=== PATIENT | female | born 1960 | race Caucasian/White ===

== ENCOUNTER 2023-06-05 14:42 | Outpatient (CLI) | payer BC, SELFPAY ==
[2023-06-05 15:27] LABS: Alanine Aminotransferase 17 U/L (6-35); Albumin Level 4.2 g/dL (3.5-5.1); Alkaline Phosphatase 161 U/L (38-126); Anion Gap 9 mmol/L (8-16); Aspartate Amino Transferase 26 U/L (14-36); Bilirubin,Total 0.6 mg/dL (0.2-1.3); Blood Urea Nitrogen 7 mg/dL (7-17); Calcium 9.6 mg/dL (8.4-10.2); Carbon Dioxide 24 mmol/L (22-30); Chloride 104 mmol/L (98-107); Estimated Glomerular Filt Rate > 60; Glucose 90 mg/dL (65-110); Potassium 4.4 mmol/L (3.4-5.0); Sodium 137 mmol/L (137-145)
[2023-06-05 15:53] LABS: Thyroid Stimulating Hormone < 0.015 uIU/mL (0.465-4.680); Total Triiodothyronine (T3) 5.53 NG/ML (0.97-1.69)
[2023-06-05 16:09] LABS: Free T4 Free Thyroxine 4.62 ng/mL (0.78-2.19)
[2023-06-13 09:58] LABS: Thyroid Peroxidase Antibodies 7756
[2023-06-13 10:15] LABS: Thyroid Stimulating Immunoglob 633
[2023-06-15 08:17] LABS: Thyrotropin Receptor Antibody >40.00
== END 2023-06-05 14:43 | disposition home or self-care (01) ==
PROVIDERS: PCP Family Medicine; Visit Provider Internal Medicine
DX: E05.90 Thyrotoxicosis, unspecified without thyrotoxic crisis or storm (principal)
CPT/HCPCS: 36415; 80053; 83519; 84439; 84443; 84445; 84480; 86376

== ENCOUNTER 2023-08-30 12:04 | Outpatient (CLI) | payer BC, SELFPAY ==
[2023-08-30 14:19] LABS: Total Triiodothyronine (T3) 2.45 NG/ML (0.97-1.69)
== END 2023-08-30 12:05 | disposition home or self-care (01) ==
LOC: ANHWCLAB 12:05
PROVIDERS: PCP Family Medicine; Visit Provider Internal Medicine
DX: H57.89 Other specified disorders of eye and adnexa (principal); E07.9 Disorder of thyroid, unspecified; E55.9 Vitamin D deficiency, unspecified; F17.200 Nicotine dependence, unspecified, uncomplicated; E05.90 Thyrotoxicosis, unspecified without thyrotoxic crisis or storm
CPT/HCPCS: 36415; 84439; 84480

== ENCOUNTER 2023-09-18 16:07 | Outpatient (CLI) | payer BC, SELFPAY ==
[2023-09-18 16:44] LABS: Alanine Aminotransferase 12 U/L (6-35); Albumin Level 3.9 g/dL (3.5-5.1); Alkaline Phosphatase 179 U/L (38-126); Anion Gap 5 mmol/L (8-16); Aspartate Amino Transferase 22 U/L (14-36); Bilirubin,Total 0.4 mg/dL (0.2-1.3); Blood Urea Nitrogen 7 mg/dL (7-17); Calcium 9.5 mg/dL (8.4-10.2); Carbon Dioxide 29 mmol/L (22-30); Chloride 102 mmol/L (98-107); Estimated Glomerular Filt Rate > 60; Glucose 94 mg/dL (65-110); Potassium 4.4 mmol/L (3.4-5.0); Sodium 136 mmol/L (137-145)
[2023-09-18 17:10] LABS: Erythrocyte Sedimentation Rate 42 mm/hr (0-20)
[2023-09-18 17:13] LABS: Thyroid Stimulating Hormone < 0.015 uIU/mL (0.465-4.680); Total Triiodothyronine (T3) 1.97 NG/ML (0.97-1.69)
[2023-09-18 17:20] LABS: Free T4 Free Thyroxine 0.47 ng/mL (0.78-2.19)
== END 2023-09-18 16:08 | disposition home or self-care (01) ==
LOC: ANHLAB 16:09
PROVIDERS: PCP Family Medicine; Visit Provider Internal Medicine
DX: E05.90 Thyrotoxicosis, unspecified without thyrotoxic crisis or storm (principal); E07.9 Disorder of thyroid, unspecified; E55.9 Vitamin D deficiency, unspecified; F17.200 Nicotine dependence, unspecified, uncomplicated; H57.89 Other specified disorders of eye and adnexa
CPT/HCPCS: 36415; 80053; 84439; 84443; 84480; 85652

== ENCOUNTER 2023-10-12 13:19 | Outpatient (CLI) | payer BC, SELFPAY ==
--- NOTE | ~2023-10-12 | US_ITS ---
EXAMINATION: US thyroid DATE: 10/12/2023 13:19 INDICATION: Thyrotoxicosis, unspecified without thyrotoxic crisis. TECHNIQUE: Multiple ultrasound images of the thyroid were obtained. COMPARISON: None. FINDINGS: The right thyroid lobe measures 4.1 x 2.5 x 1.6 cm. The left thyroid lobe measures 4.6 x 2.4 x 2.0 c m. The thyroid is diffusely hypoechoic and heterogeneous with increased vascularity. No discrete nod ule. IMPRESSION: 1. Heterogeneous, hypervascular thyroid, consistent with Graves' disease versus chronic lymphocytic ( Doc) thyroiditis. Reviewed, dictated and finalized at location A. IMPRESSION: 1. Heterogeneous, hypervascular thyroid, consistent with Graves' disease versus chronic lymphocytic (Doc) thyroiditis.
[2023-10-12 14:45] LABS: Total Triiodothyronine (T3) 2.69 NG/ML (0.97-1.69)
[2023-10-12 14:53] LABS: Free T4 Free Thyroxine 4.33 ng/mL (0.78-2.19)
== END 2023-10-12 13:20 | disposition home or self-care (01) ==
PROVIDERS: PCP Family Medicine; Visit Provider Internal Medicine
DX: E05.90 Thyrotoxicosis, unspecified without thyrotoxic crisis or storm (principal); F17.200 Nicotine dependence, unspecified, uncomplicated; H57.89 Other specified disorders of eye and adnexa; E07.9 Disorder of thyroid, unspecified; E55.9 Vitamin D deficiency, unspecified
CPT/HCPCS: 36415; 76536; 84439; 84480

== ENCOUNTER 2023-11-20 10:41 | Outpatient (CLI) | payer BC, SELFPAY ==
[2023-11-20 13:04] LABS: Alanine Aminotransferase 13 U/L (6-35); Albumin Level 3.9 g/dL (3.5-5.1); Alkaline Phosphatase 147 U/L (38-126); Anion Gap 7 mmol/L (4-12); Aspartate Amino Transferase 33 U/L (14-36); Bilirubin,Total 0.6 mg/dL (0.2-1.3); Blood Urea Nitrogen 10 mg/dL (7-17); Calcium 8.6 mg/dL (8.4-10.2); Carbon Dioxide 26 mmol/L (22-30); Chloride 104 mmol/L (98-107); Estimated Glomerular Filt Rate > 60; Glucose 99 mg/dL (65-110); Sodium 137 mmol/L (137-145)
[2023-11-20 13:19] LABS: Free T4 Free Thyroxine 1.99 ng/mL (0.78-2.19)
[2023-11-20 13:33] LABS: Thyroid Stimulating Hormone < 0.015 uIU/mL (0.465-4.680); Total Triiodothyronine (T3) 3.04 NG/ML (0.97-1.69)
[2023-11-20 13:41] LABS: Erythrocyte Sedimentation Rate 79 mm/hr (0-20)
[2023-11-22 06:59] LABS: Thyroid Peroxidase Antibodies >900 IU/mL (<9)
[2023-11-29 01:38] LABS: Thyroid Stimulating Immunoglob 357 % baseline (<140)
== END 2023-11-20 10:42 | disposition home or self-care (01) ==
LOC: ANHWCLAB 10:44
PROVIDERS: PCP Family Medicine; Visit Provider Internal Medicine
DX: E05.90 Thyrotoxicosis, unspecified without thyrotoxic crisis or storm (principal); E07.9 Disorder of thyroid, unspecified; H57.89 Other specified disorders of eye and adnexa
CPT/HCPCS: 36415; 80053; 84439; 84443; 84445; 84480; 85652; 86376

== ENCOUNTER 2023-12-12 11:29 | Outpatient (CLI) | payer BC, SELFPAY ==
[2023-12-12 17:42] LABS: Total Triiodothyronine (T3) 3.03 NG/ML (0.97-1.69)
[2023-12-12 18:01] LABS: Free T4 Free Thyroxine 1.56 ng/mL (0.78-2.19)
== END 2023-12-12 11:30 | disposition home or self-care (01) ==
LOC: ANHWCLAB 11:30
PROVIDERS: PCP Family Medicine; Visit Provider Internal Medicine
DX: E05.90 Thyrotoxicosis, unspecified without thyrotoxic crisis or storm (principal); E07.9 Disorder of thyroid, unspecified; E55.9 Vitamin D deficiency, unspecified; H57.89 Other specified disorders of eye and adnexa
CPT/HCPCS: 36415; 84439; 84480

== ENCOUNTER 2024-01-01 13:57 | Outpatient (CLI) | payer BC, SELFPAY ==
[2024-01-01 14:59] LABS: Total Triiodothyronine (T3) 3.37 NG/ML (0.97-1.69)
[2024-01-01 15:03] LABS: Free T4 Free Thyroxine 2.07 ng/mL (0.78-2.19)
== END 2024-01-01 13:58 | disposition home or self-care (01) ==
LOC: ANHLAB 13:58
PROVIDERS: PCP Family Medicine; Visit Provider Internal Medicine
DX: E05.90 Thyrotoxicosis, unspecified without thyrotoxic crisis or storm (principal); E07.9 Disorder of thyroid, unspecified; E55.9 Vitamin D deficiency, unspecified; F17.200 Nicotine dependence, unspecified, uncomplicated; H57.89 Other specified disorders of eye and adnexa
CPT/HCPCS: 36415; 84439; 84480

== ENCOUNTER 2024-09-04 15:56 | Outpatient (CLI) | payer OTHER, SELFPAY ==
[2024-09-04 16:39] LABS: Hemoglobin 11.2 g/dL (12.0-15.0); Mean Corpuscular HGB Conc 32.9 g/dl (32-36); Mean Corpuscular Hemoglobin 32.7 pg (26-34); Mean Corpuscular Volume 99.1 fl (80-100); Mean Platelet Volume 8.6 fl (7.4-10.4); Platelet Count Result 225 k/mm3 (150-375); Red Blood Count 3.43 M/mm3 (4.2-5.4); Red Cell Distribution Width 13.3 % (11.5-14.5); White Blood Count 5.2 K/mm3 (4.5-10.0)
--- OUTSIDE RECORDS SUMMARY | 2024-09-04 16:53 | XMS_ITS | Clinical Summary ---
Author Organization [facility] Address [address] [place] [address] Care Team Providers Care Tractor Trailer Mechanic Name Role Phone Vinita Bhaena MD Primary Care Provider [phone] Source Comments [facility],non-owned Affiliates and Associated Physician Practices is amultiple site organization consisting of ambulatory clinics and hospital sitesin [place], [place], [place] and [place]. This disclosure is being madepursuant to the Care Everywhere program and may not contain all information available regarding this patient. Last updated 18.[facility] Allergies No known active allergies Medications * Be aware that medications may not be up to date on this document. Alwaysverify current medications with the patient. Medication Sig Dispensed Refills Start Date End Date Status atenolol (Tenormin) 50 MG tablet Take 1 (one) tablet by mouth once daily 12/03/2023 Active calcium carbonate (Tums) 500 MG chew tablet Take 5 tabs three times daily x7 days, then two times daily x7 days, then once daily x7 days, then stop. 210 tablet 01/30/2024 Active oxyCODONE, immediate release, (Roxicodone) 5 MG tabletIndications :Thyrotoxicosis, unspecified without thyrotoxic crisis or storm TAKE ONE TABLET BY MOUTH EVERY 6 HOURS NEEDED FOR PAIN 12 tablet 01/29/2024 Active levothyroxine (Synthroid) 100 MCG tablet TAKE ONE TABLET BY MOUTH ONCE DAILY 90 tablet 4 01/29/2024 01/28/2025 Active ibuprofen (Motrin) 600 MG tablet TAKE ONE TABLET BY MOUTH EVERY 6 HOURS NEEDED FOR PAIN 30 tablet 01/29/2024 01/28/2025 Active acetaminophen (Tylenol) 500 MG tablet TAKE 1 TABLET BY MOUTH EVERY 4 HOURS NEEDED FOR FEVER OR PAIN. MAXIMUM ALLOWABLE ACETAMINOPHEN AMOUNT: 4 GRAMS (4,000MG) PER 24 HOURS. 30 tablet 01/29/2024 01/28/2025 Active calcitriol (Rocaltrol) 0.25 MCG capsule TAKE ONE CAPSULE BY MOUTH 2 TIMES A DAY FOR 28 DAYS 56 capsule 01/30/2024 01/29/2025 Active Active Problems Problem Noted Date Diagnosed Date Hyperthyroidism 01/23/2024 Polyneuropathy 02/18/2016 Other ocean transportation intermediary (current) drug therapy 5 Acne vulgaris 11/13/2014 Hidradenitis suppurativa 11/10/2014 Social History Tobacco Use Types Packs/Day Years Used Date Smoking Tobacco: Former Cigarettes Q uit: 08/2023 Smokeless Tobacco: Never Alcohol Use Standard Drinks/Week Comments Yes 0 (1 standard drink = 0.6 oz pur e alcohol) Daily-beer 3-4 AUDIT-C Answer Date Recorded Q1: How often do you have a drink containing alc ohol? Monthly or less 01/28/2024 Q2: How many drinks containi ng alcohol do you have on a typical day when you are drinking? 3 or 4 01/28/2024 Q3: How often do you have si x or more drinks on one occasion? Monthly 01/28/2024 Sex and Gender Information Value Date Recorded Sex Assigned at Not on file Gender Identity Not on file Sexual Orientation Not on file Last Filed Vital Signs Vital Sign Reading Time Taken Comments Blood Pressure 142/61 01/30/2024 8:06 AM CDT Pulse 47 01/30/2024 8:06 AM CDT Temperature 36.9 C (98.5 F) 01/30/2024 3:57 AM CDT Respiratory Rate 16 01/30/2024 8:06 AM CDT Oxygen Saturation 97% 01/30/2024 8:06 AM CDT Inhaled Oxygen Concentration - - Weight 65.9 kg (145 lb 3.2 oz) 01/28/2024 5:48 A M CDT Height 149.9 cm (4' 11 ) 01/28/2024 5:48 AM CDT Body Mass Index 29.33 01/28/2024 5:48 AM CDT Plan of Treatment Health Maintenance Due Date Last Done Comments COLON MONITORING 1960 COLONOSCOPY - COLON CA SCREENING 1960 CT COLONOGRAPHY - COLON CA SCREENING 1960 FIT - COLON CA SCREENING 1960 FLEX SIG - COLON CA SCREENING 1960 PAP SMEAR 1960 HIV SCREENING 1975 HEPATITIS C SCREENING 08/13/1978 DTAP/TDAP/TD VACCINES (1 - Tdap) 1979 PNEUMOCOCCAL VACCINE 50+ (1 of 1 - PCV) 2010 ZOSTER VACCINE (1 of 2) 2010 LIPID TESTING 11/13/2019 11/12/2014 COVID-19 VACCINE (1 - 2023-2 5 season) 2024 INFLUENZA VACCINE (#1) 2024 DEPRESSION SCREENING 07/02/2024 MAMMOGRAM 02/28/2025 02/28/2023, 02/28/2023 COLOGUARD (AGES 45-75) - COL ON CA SCREENING 01/06/2027 01/07/2024 Colorectal Cancer Screening 01/06/2027 SCREENING FOR DIABETES 01/22/2027 , 11/16/2015 Respiratory Syncytial Virus (RSV) Vaccine Pt: or over 60 yrs (1 - 1-dose 75+ series) 2035 HEPATITIS B VACCINE Aged Out No longe r eligible based on patient's age to complete this topic HIB VACCINE Aged Out No longer eligi ble based on patient's age to complete this topic HPV VACCINE Aged Out No longer eligi ble based on patient's age to complete this topic MENINGOCOCCAL (Group B) VACCINE Aged Out No longer eligible b ased on patient's age to complete this topic MENINGOCOCCAL VACCINE Aged Out No natan rolf eligible based on patient's age to complete this topic Procedures Procedure Name Priority Date/Time Associated Diagnosis Comments BASIC METABOLIC PANEL (CALCIUM TOTAL) Routine 01/23/2024 2:53 PM CDT Hyperthyroidism LIPID PROFILE Routine 11/12/2014 10:52 AM CDT from Last 3 Months or Most Recently Relevant to Health Maintenance Results * (ABNORMAL) BASIC METABOLIC PANEL (CALCIUM TOTAL) (01/23/2024 2:53 PM CDT) BUN 6(L) 7 - 26 mg/dL 01/23/2024 4:[address] [facility] Creatinine 0.70 0.56 - 0.96 mg/dL 01/23/2024 4:[address] [facility] Sodium 137 136 - 145 mmol/L 01/23/2024 4:[address] [facility] Potassium 4.0 3.5 - 4.5 mmol/L 01/23/2024 4:[address] [facility] Chloride 103 98 - 107 mmol/L 01/23/2024 4:[address] [facility] CO2 28 22 - 29 mmol/L 01/23/2024 4:[address] [facility] Glucose 86 70 - 115 mg/dL 01/23/2024 4:[address] [facility] Calcium 9.1 8.4 - 10.2 mg/dL 01/23/2024 4:[address] [facility] Anion Gap 6 6 - 16 01/23/2024 4:[address] [facility] BUN/Creatinine Ratio 9 7 - 23 01/23/2024 4:[address] [facility] Osmolality Calculated 281 275 - 295 mOsm/kg 01/23/2024 4:[address] [facility] eGFR by CKD-EPI >90 >=90 mL/min/1.7 3 m2 01/23/2024 4:[address] [facility] Blood BLOOD SPECIMEN / Unknown Lab Venipuncture / Unknown 01/23/2024 2:53 PM CDT 01/23/2024 3:47 PM CDT Chucho Serrano MD LAB - CHEMISTRY [facility] Organization Address City/State/ZIP Co de Phone Number [facility] [address] [place] [address], [facility] [phone] * (ABNORMAL) LIPID PROFILE (11/12/2014 10:52 AM CDT) Cholesterol Total 263(H) 100 - 199 mg/dL [facility] (BEAKER) Triglycerides 121 0 - 149 mg/dL [facility] (BEAKER) HDL 71 >39 mg/dL [facility] (BEAKER) Comment: According to ATP-III Guidelines, HDL-C >59 mg/dL is considered a negative risk factor for CHD. VLDL Calculated 24 5 - 40 mg/dL [facility] (BEAKER) LDL Calculated 168(H) 0 - 99 mg/dL [facility] (BEAKER) Blood specimen (specimen) BLOOD SPECIMEN / Unknown 11/12/2014 10:52 AM CDT 11/12/2014 2:55 PM CDT Narrative [facility] (BEAKER) - 11/13/2014 6:17 AM CDT Performed at: [address] [place] [id number] Cosmetic Manager: Peter Sage PhD, Phone: [phone] Salvatore Stein MD LAB - CHEMISTRY [facility] from Last 3 Months or Most Recently Relevant to Health Maintenance Advance Directives * Full Code (Latest Code Status on File) Date Activated Date Inactivated Comments 01/28/2024 11:12 AM 01/30/2024 2:14 PM Care Teams Tractor Trailer Mechanic Relationship Specialty Start Date End Date Vinita Bahena MD [address] [place] [address] [address]. [place] [id number] PCP - General Family Medicine 07/19/23
--- OUTSIDE RECORDS SUMMARY | 2024-09-04 16:53 | XMS_ITS | Encounter Summary ---
Author Organization [facility] Address [facility] [place] [address] Care Team Providers Care Slubber Machine Operator Name Role Phone Unavailable Primary Care Provider Unavailabl e Reason for Referral * Sleep Lab (Routine) - Authorized Specialty Diagnoses / Procedures Referred By Contac t Referred To Contact [facility] Sleep Disorders Diagnoses Sleep apnea, unspecified Procedures Home Sleep Study - [facility] ([id number]) Mady Plata NP [address] [place] [address] Phone: tel: fax: [facility] Sleep Lab [address] [place] [address] Phone: tel: fax: Referral ID Status Reason Start Date Expiration Date V isits Requested Visits Authorized [id number] Authorized 08/20/2024 08/20/2025 1 1 NTIFIC PHOTOGRAPHER Encounter Details Date Type Department Care Team (Late st Contact Info) Description 08/20/2024 Transcribe Orders [facility] Sleep Lab [address] [place], [place] [id number] Mady Plata NP [address] [place] [address] Social History Tobacco Use Types Packs/Day Years Used Date Smoking Tobacco: Smoker, Current Status Unknown Comments Unknown Sex and Gender Information Value Date Recorded Sex Assigned at Not on file Legal Sex Female 10:10 PM CDT Gender Identity Not on file Sexual Orientation Not on file documented as of this encounter Plan of Treatment Scheduled Orders Name Type Priority Associated Diagnoses Orde r Schedule Home Sleep Study - [facility] ([id number]) Sleep Center Routine Sleep apnea, unspecified Expected: 08/20/2024, Expires: 08/20/2025 documented as of this encounter Visit Diagnoses Diagnosis Sleep apnea, unspecified- Primary documented in this encounter
--- OUTSIDE RECORDS SUMMARY | 2024-09-04 16:53 | XMS_ITS | Clinical Summary ---
Author Organization [facility] Address [address] [place] [address] Care Team Providers Care Soldering Technician Name Role Phone Vinita Bahena MD Primary Care Provider + Chucho Serrano MD Unavailable [phone] Sue Hauser MD Unavailable [phone] Allergies No known active allergies Medications atenoloL (TENORMIN) 25 mg tablet Take 1 tablet (25 mg total) by mouth daily 06/08/2023 Active ergocalciferol (VITAMIN D) 50,000 unit capsule Take 1 capsule (50,000 Units total) by mouth 05/03/2023 Active Xiidra 5 % dropperette INSTILL 1 DROP IN BOTH EYES TWICE DAILY 12 HOURS APART 04/26/2023 Active ibuprofen (ADVIL,MOTRIN) 800 mg tablet Take 1 tablet (800 mg total) by mouth every 6 (six) hours as needed for pain 60 tablet 1 06/20/2023 Active predniSONE (DELTASONE) 10 mg tablet TAKE 4 TABLETS BY MOUTH DAILY FOR 5 DAYS 09/18/2023 Active Active Problems Problem Noted Date Diagnosed Date Hyperthyroidism 06/20/2023 Surgical History Surgery Date Site/Laterality Comments TUBAL LIGATION 07/02/1984 - 07/01/1985 Bilateral Medical History Medical History Date Comments Hypertension Thyroid disease Social History Tobacco Use Types Packs/Day Years Used Date Smoking Tobacco: Every Day Cigarettes 0.3 44.2 Started: 1980 Smokeless Tobacco: Never Tobacco Cessation:Ready to Q uit: Not Asked; Counseling Given: Not Answered AUDIT-C Answer Date Recorded Q1: How often do you have a drink containing alc ohol? 2-4 times a month 06/20/2023 Average Number of Drinks Not on file 023 Frequency of Binge Drinking Not on file 06/02 Comments No Sex and Gender Information Value Date Recorded Sex Assigned at Not on file Legal Sex Female 7:12 PM IMAGING CLERK Gender Identity Not on file Sexual Orientation Not on file Obstetrics History Para Term AB IAB SAB Ectopic Multiple Livin g Live Births 3 Date Outcome GA Total Labor Labor/2nd/3rd Weight Sex Type Anes PTL Catrachita A1 A5 Name Clin Last Filed Vital Signs Vital Sign Reading Time Taken Comments Blood Pressure 147/78 06/20/2023 1:03 PM IMAGING CLERK Pulse 78 06/20/2023 1:03 PM IMAGING CLERK Temperature 36.6 C (97.8 F) 10/14/2014 2:03 AM CDT Respiratory Rate - - Oxygen Saturation 100% 06/20/2023 1:03 PM IMAGING CLERK Inhaled Oxygen Concentration - - Weight 59 kg (130 lb) 06/20/2023 1:03 PM IMAGING CLERK Height 149.9 cm (4' 11 ) 10/14/2014 2:03 AM CDT Body Mass Index 26.26 10/14/2014 2:03 AM CDT Plan of Treatment Health Maintenance Due Date Last Done Comments Cervical Cancer Screening 1960 Colon Cancer Screening-Colonoscopy 1960 Depression Screening 1960 Hepatitis C Screening 1960 Hepatitis B Screening 1978 Regular Well Visit/Exam 18-64 1978 Pneumococcal vaccine <65 (1 of 2 - PCV) 1979 Zoster Vaccine (1 of 2) 2010 Breast Cancer Screening-Mammogram 02/29/2024 023 Influenza Vaccine (#1) 2024 DTaP/Tdap/Td Vaccine (2 - Td or Tdap) 04/19/2025 Procedures Procedure Name Priority Date/Time Associated Diagnosis Comments SCREENING MAMMOGRAM BILATERAL W ANGEL Schedule Routine, Read Routine (OP Routine) 02/28/2023 8:58 AM CDT Encounter for screening mammogram for malignant neoplasm of breast from Last 3 Months or Most Recently Relevant to Health Maintenance Results * Screening Mammogram Bilateral W Angel (02/28/2023 8:58 AM CDT) Anatomical Region Laterality Modality Breast Bilateral Mammography Impressions 02/28/2023 9:19 AM CDT BI-RADS ATLAS category (overall): 1 - Negative There is no mammographic evidence of malignancy. A 1 year screening mammogram is recommended. The patient has been or will be contacted. We recommend annual screening mammography for women at average risk of breast cancer beginning at age 40, based on guidelines of the [employer] (ACR Practice Parameter for the Performance of Screening and Diagnostic Mammography) and [employer] [place]. For women with and elevated risk of breast cancer, please refer to the ACR Practice Parameter for specific screening recommendations. The patient will be entered into a reminder system with a target due date of 1 year for her next screening exam. Narrative 02/28/2023 9:19 AM CDT Screening Mammogram Bilateral W Angel: 02/28/23 The study was acquired using full field digital technology and interpreted from soft copy. 2D digital mammographic views, as well as 3D digital tomosynthesis were performed in the CC and MLO projections. CLINICAL: Encounter for screening mammogram for malignant neoplasm of breast. No relevant medical history has been documented for this patient. No known family history of breast cancer. COMPARISON: Baseline Screening Mammography. No prior mammography is available for comparison. BREAST TISSUE: The breasts have scattered areas of fibroglandular density. FINDINGS: There are benign calcifications in the left breast. No suspicious masses, suspicious calcifications, or other suspicious findings are seen within either breast. Vinita Bahena MD IMG MAMMO PROCEDURES Fin al Result from Last 3 Months or Most Recently Relevant to Health Maintenance Insurance [facility] ACCESS ANTHEM ACCESS Care Teams Soldering Technician Relationship Specialty Start Date End Date Vinita Bahena MD [address] [place] [address] PCP - General Family Medicine 02/16/23 Chucho Serrano MD [address] [place] [address] Consulting Physician Internal Medicine 06/13/23 Sue Hauser MD [address] [place] [address] Radiation Oncologist Radiation Oncology 06/13/23
--- OUTSIDE RECORDS SUMMARY | 2024-09-04 16:53 | XMS_ITS | Patient Health Summary ---
Author Organization [facility] Address [address] [place] [address] Care Team Providers Care Manager Civil Name Role Phone Vinita Bahena MD Primary Care Provider [phone] Note from [facility],non-owned Affiliates and Associated Physician Practices is amultiple site organization consisting of ambulatory clinics and hospital sitesin [place], [place] and [place]. This disclosure is being madepursuant to the Care Everywhere program and may not contain all information available regarding this patient. Last updated 18.[facility] Allergies No known active allergies Medications * Be aware that medications may not be up to date on this document. Alwaysverify current medications with the patient. * atenolol (Tenormin) 50 MG tablet(Started 12/03/2023) Take 1 (one) tablet by mouth once daily * calcium carbonate (Tums) 500 MG chew tablet(Started 01/30/2024) Take 5 tabs three times daily x7 days, then two times daily x7 days, then once daily x7 days, then stop. * oxyCODONE, immediate release, (Roxicodone) 5 MG tablet(Started 01/29/2024) TAKE ONE TABLET BY MOUTH EVERY 6 HOURS NEEDED FOR PAIN * levothyroxine (Synthroid) 100 MCG tablet(Started 01/29/2024) TAKE ONE TABLET BY MOUTH ONCE DAILY 4 refills by 01/28/2025 * ibuprofen (Motrin) 600 MG tablet(Started 01/29/2024) TAKE ONE TABLET BY MOUTH EVERY 6 HOURS NEEDED FOR PAIN * acetaminophen (Tylenol) 500 MG tablet(Started 01/29/2024) TAKE 1 TABLET BY MOUTH EVERY 4 HOURS NEEDED FOR FEVER OR PAIN. MAXIMUM ALLOWABLE ACETAMINOPHEN AMOUNT: 4 GRAMS (4,000MG) PER 24 HOURS. 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/2016 Other termite exterminator (current) drug therapy 5 Acne vulgaris 11/13/2014 [...] Mass Index 29.33 01/28/2024 5:48 AM CDT Procedures * CALCIUM BLOOD(Performed 01/30/2024) Performed for Hyperthyroidism * CALCIUM BLOOD(Performed 01/30/2024) Performed for Hyperthyroidism * CALCIUM BLOOD(Performed 01/29/2024) Performed for Hyperthyroidism * CALCIUM BLOOD(Performed 01/29/2024) Performed for Hyperthyroidism * CALCIUM BLOOD(Performed 01/29/2024) Performed for Hyperthyroidism * CALCIUM BLOOD(Performed 01/28/2024) Performed for Hyperthyroidism * PTH POST-OP OR ONLY(Performed 01/28/2024) Performed for Hyperthyroidism * CALCIUM BLOOD(Performed 01/28/2024) Performed for Hyperthyroidism * PATHOLOGY TISSUE(Performed 01/28/2024) Performed for Hyperthyroidism * ENDOTRACHEAL TUBE NOTE(Performed 01/28/2024) * MI THYROIDECTOMY(Performed 01/28/2024) Performed for Hyperthyroidism * TYPE + SCREEN PANEL(Performed 01/28/2024) Performed for Hyperthyroidism * TYPE + SCREEN PANEL(Performed 01/23/2024) Performed for Hyperthyroidism * CBC W/O DIFFERENTIAL(Performed 01/23/2024) Performed for Hyperthyroidism * BASIC METABOLIC PANEL (CALCIUM TOTAL)(Performed 01/23/2024) Performed for Hyperthyroidism * EKG 12-LEAD(Performed 01/23/2024) Performed for Hyperthyroidism * MRI BRAIN WWO CONTRAST(Performed 03/11/2016) * CREATININE BLOOD - POCT (IP) [facility](Performed 03/11/2016) * LAB MISC TEST(Performed 02/18/2016) * METHYLMALONIC ACID BLOOD(Performed 11/16/2015) * BRAULIO BLOOD SCREEN W/REFLEX TITER(Performed 11/16/2015) * SWENSON (SM) ANTIBODY CHANDLER(Performed 11/16/2015) * VITAMIN D 25-HYDROXY(Performed 11/16/2015) * T4 FREE(Performed 11/16/2015) * FOLATE(Performed 11/16/2015) * VITAMIN B12(Performed 11/16/2015) * TSH(Performed 11/16/2015) * ERYTHROCYTE SEDIMENTATION RATE(Performed 11/16/2015) * COMPREHENSIVE METABOLIC PANEL(Performed 11/16/2015) * LIPID PROFILE(Performed 11/12/2014) * HEPATIC FUNCTION PANEL(Performed 11/12/2014) * CBC W AUTO DIFFERENTIAL(Performed 11/12/2014) Results * CALCIUM BLOOD (01/30/2024 10:22 AM CDT) Only the most recent of7 resultswithin the time period is included. Calcium 8.5 8.4 - 10.2 mg/dL 01/30/2024 11:00 AM CDT [facility] Blood BLOOD SPECIMEN / Unknown Venipuncture / Unknown 01/30/2024 10:22 AM CDT 01/30/2024 10:42 AM CDT Russell Shell MD LAB - CHEMISTRY CAMILA MATHEW Performing Organization Address [facility]/ZIP Co de Phone Number [address] [address], [facility] [phone] * PTH POST-OP OR ONLY (01/28/2024 10:07 AM CDT) PTH Post-Operative 20.8 See Comment pg/mL 01/28/2024 10:51 AM CDT [facility] Comment:A decrease in cirula ting PTH of 50% or more, ten minutes post-resection, signals successful removal of the abnormally secreting parathyroid tissue. Blood BLOOD SPECIMEN / Unknown Venipuncture / Unknown 01/28/2024 10:07 AM CDT 01/28/2024 10:13 AM CDT Russell Shell MD LAB - CHEMISTRY CAMILA MATHEW Performing Organization Address [facility] Co de Phone Number [address] [address], [facility] [phone] * PATHOLOGY TISSUE (01/28/2024 8:57 AM CDT) Case Report Surgical Pathology Report Case: [id number] Authorizing Provider: Russell Shell MD Collected: 01/28/2024 08:57 AM Ordering Location: [facility] Received: 01/28/2024 09:54 AM Pathologist: Veronica Sim MD Specimen: Thyroid Total, THYROID, stitch right superior 01/29/2024 8:59 AM CDT [facility] Final Diagnosis Thyroid, total thyroidectomy (A): - Diffuse hyperplasia - Parathyroid tissue associated with left lobe 01/29/2024 8:59 AM [facility] Microscopic Description and Comment Sections show diffuse hyperplasia of follicular epithelium with nuclear variability and minimal colloid. No malignancy is present. Focal parathyroid tissue is present in A4. 01/29/2024 8:59 AM [facility] Clinical History The patient is a 63 year old female with Graves disease. 01/29/2024 8:59 AM [facility] Gross Description The requisition and specimen(s) are identified with the patient's name, Sheila Sosa. Received in formalin, specimen A , is a oriented total thyroidectomy. The specimen weighs 18.9 g and measures 5.0 x 4.5 x 2.5 cm overall. The right lobe measures 4.0 x 2.0 x 2.0 cm. The left lobe measures 5.0 x 2.0 x 1.8 cm. The isthmus measures 2.5 x 2.0 x 0.5 cm. Extending beyond the isthmus surface is an additional segment of presumed pyramidal lobe measuring 3.0 x 1.0 x 0.4 cm. The specimen is inked as follows: Black - External surface of the right lobe, Blue - External surface of the left lobe, [place] -external surface of isthmus and pyramidal lobe. The left and right lobes are serially sectioned from superior to inferior and the isthmus is sectioned from right to left. Sectioning shows one jones-white well-circumscribed nodule measuring 0.3 x 0.3 x 0.2 cm in the lower right. The remaining thyroid parenchyma is red-brown, glistening and homogenous cut surfaces. Financial Agent sections are submitted as follows: A1 nodule #1, entirely A2 additional section of right lobe A3-A4 unremarkable left lobe A5 unremarkable isthmus and pyramidal lobe MSL 01/29/2024 8:59 AM [facility] Pathologist Location at [facility] 01/29/2024 8:59 AM [facility] Disclaimer The performance characteristics of all immunohistochemical and indirect immunofluorescence stains (if any) cited in this report were determined by the Histopathology Laboratory of [facility]. Some of these tests were developed by our own laboratory and have not been cleared or approved by the US Food and Drug Administration. The FDA does not require this test to go through premarket FDA review. These tests are used for clinical purposes. They should not be regarded as investigational or for research. This laboratory is certified under the Clinical Laboratory Improvement Amendments (CLIA) as qualified to perform high complexity clinical laboratory testing. This case has been personally reviewed and interpreted by the attending (teaching) pathologist. 01/29/2024 8:59 AM CDT [facility] Embedded Images 01/29/2024 8:59 AM CDT [facility] Biopsy, Excision SPECIMEN FROM THYROID OBTAINED BY TOTAL THYROIDECTOMY / Unknown 01/28/2024 8:57 AM CDT 01/28/2024 9:54 AM CDT Comment:Pre-op diagnosis: Hyperthyroidism Russell Shell MD LAB - PATHOLOGY/CYTO LOGY ORDERABLES Performing Organization Address City/State/[facility] Phone Number [facility] [address] [phone] * ETT LINE PERFORMABLE (01/28/2024 8:06 AM CDT) Narrative Rebeka Cabrera MD - 01/28/2024 8:06 AM CDT Rebeka Cabrera MD 01/28/2024 8:06 AM Endotracheal Tube Placement: Patient Location: OR. Procedure: intubation (32370) Procedure Section: Sedation: under general anesthesia. Indications for Airway Management: anesthesia Induction: standard IV Patient Position: sniffing and supine Mask Ventilation: easy. Blade Type: Video Blade Size: 3 Laryngoscopy View: grade 1 (full cords) Intubation Adjuncts: stylet and video laryngoscope Tube: endotracheal tube Placement: oral Tube type: cuff - inflated (NIMS) Tube Size (MM): 7 Depth of Insertion (CM): 21 Measured From: teeth Cuff volume (mL): 8 Cuff Inflated With: air Number of Attempts: 1. Placement Verified By: direct visualization, chest auscultation, CO2 monitor and bilateral breath sounds Tube secured with: adhesive tape. Dentition unchanged? Yes Difficult Airway? No. Staff Section Anesthesia Provider: Rebeka Cabrera MD, Performed the procedure Provider #1: Georgette Elizondo MD. Georgette Elizondo MD GENERAL ANESTHESIA ORDERABLES * TYPE + SCREEN PANEL (01/28/2024 6:18 AM CDT) Only the most recent of2 resultswithin the time period is included. [facility] Antibody Screen NEG 7:18 AM CDT [facility] ABO Rh O POS 01/28/2024 7:18 AM CDT [facility] Blood Bank BLOOD SPECIMEN / Unknown Venipuncture / Unknown 01/28/2024 6:18 AM CDT 01/28/2024 6:24 AM CDT Chucho Serrano MD LAB - BLOOD BANK ORD ERABLES [facility] [address] [place] [address], [facility] [phone] * CBC W/O DIFFERENTIAL (01/23/2024 2:53 PM CDT) [facility] WBC 7.7 4.0 - 10.7 x10E9/L 01/23/2024 3:50 PM CDT [facility] RBC Count 4.63 3.90 - 5.20 x10E12/L 01/23/2024 3:50 PM CDT [facility] Hemoglobin 13.4 11.9 - 15.8 g/dL 01/23/2024 3:50 PM CDT [facility] Hematocrit 40.0 34.8 - 46.1 % 01/23/2024 3:50 PM CDT [facility] MCV 86.4 80.0 - 98.0 fL 01/23/2024 3:50 PM CDT [facility] MCH 28.9 26.7 - 33.6 pg 01/23/2024 3:50 PM CDT [facility] MCHC 33.5 31.7 - 36.3 g/dL 01/23/2024 3:50 PM CDT [facility] RDW-CV 13.0 11.3 - 14.8 % 01/23/2024 3:50 PM CDT [facility] Platelet Count 386 150 - 420 x10E9/L 01/23/2024 3:50 PM [facility] MPV 8.4 7.8 - 11.4 fL 01/23/2024 3:50 PM [facility] Blood BLOOD SPECIMEN / Unknown Lab Venipuncture / Unknown 01/23/2024 2:53 PM CDT 01/23/2024 3:47 PM CDT Chucho Serrano MD LAB - HEMATOLOGY ORD ERABLES [facility] [address] [place] [address], [facility] [phone] * (ABNORMAL) BASIC METABOLIC PANEL (CALCIUM TOTAL) (01/23/2024 2:53 PM CDT) BUN 6(L) 7 - 26 mg/dL 01/23/2024 4:17 PM [facility] Creatinine 0.70 0.56 - 0.96 mg/dL 01/23/2024 4:17 PM [facility] Sodium 137 136 - 145 mmol/L 01/23/2024 4:17 PM [facility] Potassium 4.0 3.5 - 4.5 mmol/L 01/23/2024 4:17 PM [facility] Chloride 103 98 - 107 mmol/L 01/23/2024 4:17 PM [facility] CO2 28 22 - 29 mmol/L 01/23/2024 4:17 PM [facility] Glucose 86 70 - 115 mg/dL 01/23/2024 4:17 PM [facility] Calcium 9.1 8.4 - 10.2 mg/dL 01/23/2024 4:17 PM [facility] Anion Gap 6 6 - 16 01/23/2024 4:17 PM [facility] BUN/Creatinine Ratio 9 7 - 23 01/23/2024 4:17 PM [facility] Osmolality Calculated 281 275 - 295 mOsm/kg 01/23/2024 4:17 PM [facility] eGFR by CKD-EPI >90 >=90 mL/min/1.7 3 m2 01/23/2024 4:17 PM [facility] Blood BLOOD SPECIMEN / Unknown Lab Venipuncture / Unknown 01/23/2024 2:53 PM CDT 01/23/2024 3:47 PM CDT Chucho Serrano MD LAB - CHEMISTRY ORDDevin MATHEW Performing Organization Address [facility] Co de Phone Number [facility] [address] [phone], [facility] [phone] * EKG 12-LEAD (01/23/2024 1:52 PM CDT) Pathologist [facility] Ventricular Rate 56 BPM [facility] M[facility] Atrial Rate 56 BPM [facility] P-R Interval 120 ms [facility] QRS Duration ms 70 ms [facility] M[facility] Q-T Interval ms 428 ms [facility] QTC Calculation (Bezet) 413 ms [facility] M[facility] Calculated P [place] -3 degrees SL MUSE Calculated R [place] 2 degrees SL MUSE Calculated T [place] 23 degrees [facility] MUSE Interpretation EKG SINUS BRADYCARDIA NONSPECIFIC ST & T WAVE CHANGES POOR R WAVE PROGRESSION NO PREVIOUS ECGS AVAILABLE Confirmed by fellow YOVANA DIAZ MD ([id number]) on 01/23/2024 5:31:18 PM Confirmed by AIDE FRAZIER MD ([id number]) on 01/24/2024 4:34:05 PM [facility] MUSE 01/23/2024 1:52 PM CDT 01/24/2024 4:34 PM CDT Chucho Serrano MD ECG ORDERABLES Performing Organization Address [facility] Co de Phone Number [facility] M[facility] * MRI BRAIN WWO CONTRAST (03/11/2016 2:10 PM CDT) Anatomical Region Laterality Modality Head Other Impressions 03/12/2016 10:45 AM CDT IMPRESSION: 1. No findings identified to explain the patient's symptoms. This report was electronically signed by ARACELIS NICOLAS M.D. on 03/12/2016 10:45 AM . Narrative 03/12/2016 10:45 AM CDT EXAMINATION: Magnetic resonance imaging (MRI) of the brain without and with contrast HISTORY: Progressive headache for last year TECHNIQUE: MRI of the brain was performed prior to and following the uneventful administration of 8 mL Gadavist intravenous gadolinium contrast according to a tumor protocol. FINDINGS: No prior study is available for comparison at the time of this dictation. No evidence of acute or chronic hemorrhage is identified. No evidence of acute cerebral infarction is seen. The ventricles are of normal size, shape, and morphology. No mass effect or midline shift is seen. Scattered cerebral hemispheric white matter FLAIR hyperintensities are a nonspecific finding. No enhancing lesions are identified. The corpus callosum and sella appear normal. The posterior fossa, brainstem, and craniocervical junction appear normal. Other than mild paranasal sinus disease, the visualized portions of the orbits, paranasal sinuses, and mastoids appear normal. Normal flow voids are demonstrated in the carotid arteries and basilar artery. The calvarium and visualized cervical spine appear normal. Procedure Note Aracelis Nicolas MD - 09/29/2017 EXAMINATION: Magnetic resonance imaging (MRI) of the brain without andwith contrast HISTORY: Progressive headache for last year TECHNIQUE: MRI of the brain was performed prior to and following theuneventful administration of 8 mL Gadavist intravenous gadolinium contrastaccording to a tumor protocol. FINDINGS: No prior study is available for comparison at the time of thisdictation. No evidence of acute or chronic hemorrhage is identified. No evidence ofacute cerebral infarction is seen. The ventricles are of normal size,shape, and morphology. No mass effect or midline shift is seen. Scatteredcerebral hemispheric white matter FLAIR hyperintensities are a nonspecific finding. No enhancing lesions areidentified. The corpus callosum and sella appear normal. The posteriorfossa, brainstem, and craniocervical junction appear normal. Other than mild paranasal sinus disease, the visualized portions of theorbits, paranasal sinuses, and mastoids appear normal. Normal flow voidsare demonstrated in the carotid arteries and basilar artery. The calvariumand visualized cervical spine appear normal. IMPRESSION IMPRESSION: 1. No findings identified to explain the patient's symptoms. This report was electronically signed by ARACELIS NICOLAS M.D. on 03/12/201610:45 AM . Tavo Pittman MD MR ORDERABLES * CREATININE BLOOD - POCT (IP) [facility] (03/11/2016) [facility] Creatinine POCT 0.79 0.3 - 1.3 mg/dL [facility] eGFR POCT 60 60 ml/min [facility] 03/11/2016 Tavo Pittman MD LAB - POINT OF CARE ORDERABLES Performing Organization Address [facility]/ZIP Co de Phone Number [facility] * LAB MISC TEST (02/18/2016 9:23 AM CDT) [facility] Reference Lab Results SEE SCANNED REPORT [facility] REF LAB NON INTERF Other (qualifier value) 02/18/2016 9:23 AM CDT 02/18/2016 10:18 AM CDT Narrative [facility] REF LAB NON INTERF - 03/15/2016 1:59 PM CDT Test Name:->SENSORY NEUROPATHY/NEURONOPATHY Reference Lab Info:->NEUROMUSCULAR CLINICAL LAB Tavo Pittman MD LAB SEND OUT Performing Organization Address [facility] Co de Phone Number [facility] REF LAB NON INTERF * SWENSON (SM) ANTIBODY CHANDLER (11/16/2015 2:26 PM CDT) [facility] Swenson Antibody 2.6 0.0 - 19.9 Units [facility] Comment: CHANDLER Antibody Numeric Result Interpretation: <20.0 Units: Negative 20.0 - 39.0 Units: Weakly Positive >39.0 Units: Positive Blood specimen (specimen) BLOOD SPECIMEN / Unknown 11/16/2015 2:26 PM CDT 11/16/2015 3:01 PM CDT Tavo Pittman MD LAB - CHEMISTRY CAMILA MATHEW Performing Organization Address [facility]/ZIP Co de Phone Number [address] [phone] * BRAULIO BLOOD SCREEN W/REFLEX TITER (11/16/2015 2:26 PM CDT) [facility] BRAULIO IFA Negative [facility] ([facility]ER) Comment: Negative <1:80 Borderline 1:80 Positive >1:80 Blood specimen (specimen) BLOOD SPECIMEN / Unknown 11/16/2015 2:26 PM CDT 11/16/2015 3:02 PM CDT Narrative [facility] ([facility]) - 11/18/2015 3:20 PM CDT Performed at: [address] [place] [id number] Transit Department Clerk: Bird Ferrer PhD, Phone: [phone] Tavo Pittman MD LAB - CHEMISTRY CAMILA MATHEW [facility] ([facility]) * METHYLMALONIC ACID BLOOD (11/16/2015 2:26 PM CDT) Pathologist [facility] Methylmalonic Acid 104 0 - 378 nmol/L [facility] ([facility]) Blood specimen (specimen) BLOOD SPECIMEN / Unknown 11/16/2015 2:26 PM CDT 11/16/2015 3:02 PM CDT Narrative [facility] ([facility]) - 11/20/2015 6:17 AM CDT Performed at: [address] [place] [id number] [address] Department Clerk: Christian Tolentino MD, Phone: [phone] Tavo Pittman MD LAB - CHEMISTRY CAMILA MATHEW Performing Organization Address City/[facility]/ZIP Co de Phone Number [facility] ([facility]) * (ABNORMAL) VITAMIN D 25-HYDROXY (11/16/2015 2:26 PM CDT) Vitamin D, 25 Hydroxy <13.0(L) >30.0 ng/mL [facility] Comment: The recommendations for 25-Hydroxy Vitamin D clinical decision points are as follows: Deficient: <20.0 ng/mL Insufficient: 20.0 - 30.0 ng/mL Sufficient: >30.0 ng/mL If the 25-Hydroxy Vitamin D results are inconsitent with clinical evidence, it is recommended that follow-up testing using a method such as LC/MS/MS be performed to confirm the result. Blood specimen (specimen) BLOOD SPECIMEN / Unknown 11/16/2015 2:26 PM CDT 11/16/2015 3:01 PM CDT Tavo Pittman MD LAB - CHEMISTRY ORDE RABLES Performing Organization Address City/[facility]/ZIP Co de Phone Number [address] [phone] * ERYTHROCYTE SEDIMENTATION RATE (11/16/2015 2:26 PM CDT) Erythrocyte Sedimentation Rate Westergren 5 0 - 20 MM/HR [facility] Blood specimen (specimen) BLOOD SPECIMEN / Unknown 11/16/2015 2:26 PM CDT 11/16/2015 3:01 PM CDT Tavo Pittman MD LAB - HEMATOLOGY ORD ERABLES Performing Organization Address [facility] Co de Phone Number [address] [phone] * COMPREHENSIVE METABOLIC PANEL (11/16/2015 2:26 PM CDT) BUN 9 7 - 26 mg/dL [facility] Creatinine 0.6 0.6 - 1.2 mg/dL [facility] Sodium 138 136 - 145 mmol/L [facility] Potassium 4.2 3.5 - 4.5 mmol/L [facility] Chloride 107 98 - 107 mmol/L [facility] CO2 25 22 - 29 mmol/L [facility] Glucose 96 70 - 115 mg/dL [facility] Calcium 9.4 8.4 - 10.2 mg/dL [facility] Protein Total 7.3 6.0 - 8.3 g/dL [facility] Albumin 3.9 3.4 - 5.0 g/dL [facility] Bilirubin Total 0.4 0.2 - 1.2 mg/dL [facility] Alkaline Phosphatase 85 40 - 150 Units/L [facility] ALT 11 0 - 55 Units/L [facility] AST 15 5 - 34 Units/L [facility] Anion Gap 10 8 - 18 [facility] BUN/Creatinine Ratio 15 7 - 23 [facility] Osmolality Calculated 270 270 - 300 mOsm/kg [facility] Albumin/Globulin Ratio 1.1 1.1 - 2.3 [facility] eGFR >60 >60 mL/min/1.7 3 m2 [facility] Blood specimen (specimen) BLOOD SPECIMEN / Unknown 11/16/2015 2:26 PM CDT 11/16/2015 3:01 PM CDT Tavo Pittman MD LAB - CHEMISTRY CAMILA MATHEW [address] [phone] * FOLATE (11/16/2015 2:26 PM CDT) Folate 11.3 7.0 - 31.4 ng/mL [facility] Blood specimen (specimen) BLOOD SPECIMEN / Unknown 11/16/2015 2:26 PM CDT 11/16/2015 3:01 PM CDT Tavo Pittman MD LAB - CHEMISTRY CAMILA MATHEW Performing Organization Address City/[facility]/ZIP Co de Phone Number [address] [phone] * VITAMIN B12 (11/16/2015 2:26 PM CDT) Vitamin B12 518 213 - 816 pg/mL [facility] Blood specimen (specimen) BLOOD SPECIMEN / Unknown 11/16/2015 2:26 PM CDT 11/16/2015 3:01 PM CDT Tavo Pittman MD LAB - CHEMISTRY CAMILA MATHEW [address] [phone] * TSH (11/16/2015 2:26 PM CDT) TSH 1.821 0.350 - 4.940 uIU/mL [facility] Blood specimen (specimen) BLOOD SPECIMEN / Unknown 11/16/2015 2:26 PM CDT 11/16/2015 3:01 PM CDT Tavo Pittman MD LAB - CHEMISTRY CAMILA MATHEW [address] [phone] * T4 FREE (11/16/2015 2:26 PM CDT) Pathologist [facility] T4 Free 1.0 0.7 - 1.5 ng/dL [facility] Blood specimen (specimen) BLOOD SPECIMEN / Unknown 11/16/2015 2:26 PM CDT 11/16/2015 3:01 PM CDT Tavo Pittman MD LAB - CHEMISTRY CAMILA MATHEW Performing Organization Address [facility]/ZIP Co de Phone Number [address] [phone] * CBC W AUTO DIFFERENTIAL (11/12/2014 10:52 AM CDT) Pathologist [facility] WBC 6.9 3.4 - 10.8 x10E3/uL [facility] ([facility]ER) RBC 4.62 3.77 - 5.28 x10E6/uL [facility] (BEAKER) Hemoglobin 14.9 11.1 - 15.9 g/dL [facility] (BEAKER) Hematocrit 43.7 34.0 - 46.6 % [facility] (BEAKER) MCV 95 79 - 97 fL [facility] (BEAKER) MCH 32.3 26.6 - 33.0 pg [facility] (BEAKER) MCHC 34.1 31.5 - 35.7 g/dL [facility] (BEAKER) RDW-CV 13.5 12.3 - 15.4 % [facility] (BEAKER) Platelet 234 150 - 379 x10E3/uL [facility] (BEAKER) Neutrophils % 57 % [facility] (BEAKER) Lymphocytes % 34 % [facility] (BEAKER) Monocytes % 6 % [facility] (BEAKER) Eosinophils % 2 % [facility] (BEAKER) Basophil % 1 % [facility] (BEAKER) Neutrophils Absolute 4.0 1.4 - 7.0 x10E3/uL [facility] (BEAKER) Lymphocyte Absolute Manual 2.4 0.7 - 3.1 x10E3/uL [facility] (BEAKER) Monocytes Absolute 0.4 0.1 - 0.9 x10E3/uL [facility] (BEAKER) Eosinophils Absolute Manual 0.1 0.0 - 0.4 x10E3/uL [facility] (BEAKER) Basophil Absolute Manual 0.0 0.0 - 0.2 x10E3/uL [facility] (BEAKER) Immature Granulocytes % 0 % [facility] (BEAKER) Immature Granulocytes absolute 0.0 0.0 - 0.1 x10E3/uL [facility] (BEAKER) Blood specimen (specimen) BLOOD SPECIMEN / Unknown 11/12/2014 10:52 AM CDT 11/12/2014 2:55 PM CDT Narrative [facility] (BEAKER) - 11/13/2014 6:17 AM CDT Performed at: [address] [place] [id number] Transit Department Clerk: Peter Sage PhD, Phone: [phone] Salvatore Stein MD LAB - HEMATOLOGY ORD ERABLES [facility] (BEAKER) * HEPATIC FUNCTION PANEL (11/12/2014 10:52 AM CDT) Protein Total 6.9 6.0 - 8.5 g/dL [facility] (BEAKER) Albumin 4.5 3.5 - 5.5 g/dL [facility] (BEAKER) Bilirubin Total 0.3 0.0 - 1.2 mg/dL [facility] (BEAKER) Bilirubin Direct 0.09 0.00 - 0.40 mg/dL [facility] (BEAKER) Alkaline Phosphatase 79 39 - 117 IU/L [facility] (BEAKER) AST 15 0 - 40 IU/L [facility] (BEAKER) ALT 12 0 - 32 IU/L [facility] (BEAKER) Blood specimen (specimen) BLOOD SPECIMEN / Unknown 11/12/2014 10:52 AM CDT 11/12/2014 2:55 PM CDT Narrative [facility] (BEAKER) - 11/13/2014 6:17 AM CDT Performed at: [address] [id number] Transit Department Clerk: Peter Sage PhD, Phone: [phone] Salvatore Stein MD LAB - CHEMISTRY CAMILA MATHEW Performing Organization Address City/[facility]/ZIP Co de Phone Number [facility] (BEAKER) * (ABNORMAL) LIPID PROFILE (11/12/2014 10:52 AM CDT) Cholesterol Total 263(H) 100 - 199 mg/dL [facility] (BEAKER) Triglycerides 121 0 - 149 mg/dL [facility] (BEAKER) HDL 71 >39 mg/dL [facility] (BEAKER) Comment: According to ATP-III Guidelines, HDL-C >59 mg/dL is considered a negative risk factor for CHD. VLDL Calculated 24 5 - 40 mg/dL [facility] (BEAKER) LDL Calculated 168(H) 0 - 99 mg/dL [facility] (BEAKER) Blood specimen (specimen) BLOOD SPECIMEN / Unknown 11/12/2014 10:52 AM CDT 11/12/2014 2:55 PM CDT Narrative [facility] (BEAKER) - 11/13/2014 6:17 AM CDT Performed at: [address] [id number] Transit Department Clerk: Peter Sage PhD, Phone: [phone] Salvatore Stein MD LAB - CHEMISTRY CAMILA MATHEW [facility] (BEAKER) Care Teams Manager Civil Relationship Specialty Start Date End Date Vinita Bahena MD [address] [place], [place] [phone] PCP - General Family Medicine 07/19/23
--- OUTSIDE RECORDS SUMMARY | 2024-09-04 16:53 | XMS_ITS | Referral Summary ---
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 Gender Identity Not on file Sexual Orientation Not on file Last Filed Vital Signs Vital Sign Reading Time Taken Comments Blood Pressure 147/78 06/20/2023 1:03 PM PERSONNEL QUALITY ASSURANCE AUDITOR Pulse 78 06/20/2023 1:03 PM PERSONNEL QUALITY ASSURANCE AUDITOR Temperature 36.6 C (97.8 F) 10/14/2014 2:03 AM CDT Respiratory Rate - - Oxygen Saturation 100% 06/20/2023 1:03 PM PERSONNEL QUALITY ASSURANCE AUDITOR Inhaled Oxygen Concentration - - Weight 59 kg (130 lb) 06/20/2023 1:03 PM PERSONNEL QUALITY ASSURANCE AUDITOR Height 149.9 cm (4' 11 ) 10/14/2014 2:03 AM CDT Body Mass Index 26.26 10/14/2014 2:03 AM CDT Plan of Treatment Not on file Procedures Procedure Name Priority Date/Time Associated Diagnosis [...] age 40, based on guidelines of the [employer] (ACR Practice Parameter for the Performance of Screening and Diagnostic Mammography) and [employer]. For women [...] Most Recently Relevant to Health Maintenance Insurance [employer] ACC[employer] ANTHEM ACCESS Care Teams Yarn Mercerizer Operator Helper Relationship Specialty Start Date End Date Vinita Bahena MD [address] [place] [address] PCP - General Family Medicine 02/16/23 Chucho Serrano MD [address] [place] [address] Consulting Physician Internal Medicine 06/13/23 Sue Hauser MD [address] [place] [address] Radiation Oncologist Radiation Oncology 06/13/23
--- OUTSIDE RECORDS SUMMARY | 2024-09-04 16:53 | XMS_ITS | Referral Summary ---
Author Organization [facility] [employer] Address [address] [place] [address] Care Team Providers Care Customer Care Team Coach Name Role Phone Vinita Bahena MD Primary Care Provider [phone] Source Comments [facility] [employer]non-owned Affiliates and Associated Physician Practices is amultiple site organization consisting of ambulatory clinics and hospital sitesin [place], [place], [place] and [place]. This disclosure is being madepursuant to the Care Everywhere program and may not contain all information available regarding this patient. Last updated 18.[facility] [employer] Allergies No known active allergies Medications * [...] Diagnosed Date Hyperthyroidism 01/23/2024 Polyneuropathy 02/18/2016 Other terminal system operator (current) drug therapy 5 Acne vulgaris 11/13/2014 [...] 01/28/2024 5:48 AM CDT Plan of Treatment Not on [...] 7 - 26 mg/dL 01/23/2024 4:17 PM [facility] Creatinine 0.70 0.56 - 0.96 mg/dL 01/23/2024 4:17 PM [facility] Sodium 137 136 - 145 mmol/L 01/23/2024 4:17 PM [facility] Potassium 4.0 3.5 - 4.5 mmol/L 01/23/2024 4:17 PM [facility] Chloride 103 98 - 107 mmol/L 01/23/2024 4:17 PM [facility] CO2 28 22 - 29 mmol/L 01/23/2024 4:17 PM [facility] Glucose 86 70 - 115 mg/dL 01/23/2024 4:17 PM [facility] Calcium 9.1 8.4 - 10.2 mg/dL 01/23/2024 4:17 PM [facility] Anion Gap 6 6 - 16 01/23/2024 4:17 PM [facility] BUN/Creatinine Ratio 9 7 - 23 01/23/2024 4:17 PM [facility] Osmolality Calculated 281 275 - 295 mOsm/kg 01/23/2024 4:17 PM [facility] eGFR by CKD-EPI >90 >=90 mL/min/1.7 3 m2 01/23/2024 4:17 PM [facility] Blood BLOOD SPECIMEN / Unknown Lab Venipuncture / Unknown 01/23/2024 2:53 PM CDT 01/23/2024 3:47 PM CDT Chucho Serrano MD LAB - CHEMISTRY CAMILA MATHEW [facility] [id number] [phone] * (ABNORMAL) LIPID PROFILE (11/12/2014 10:52 AM CDT) Pathologist [facility] Cholesterol Total 263(H) 100 - 199 mg/dL [facility] (BEAKER) Triglycerides 121 0 - 149 mg/dL [facility] (BEAKER) HDL 71 >39 mg/dL [facility] (BEAKER) Comment: According to ATP-III Guidelines, HDL-C >59 mg/dL is considered a negative risk factor for CHD. VLDL Calculated 24 5 - 40 mg/dL [facility] (BEAKER) LDL Calculated 168(H) 0 - 99 mg/dL [facility] (BEAKER) Blood specimen (specimen) BLOOD SPECIMEN / Unknown 11/12/2014 10:52 AM CDT 11/12/2014 2:55 PM CDT Narrative [facility] (BEAKER) - 11/13/2014 6:17 AM CDT Performed at: - [address] [id number] [place] Slasher: Peter Sage PhD, Phone: [phone] Salvatore Stein MD LAB - CHEMISTRY CAMILA MATHEW [facility] ([facility]) from Last 3 Months or Most Recently Relevant to Health Maintenance Advance Directives * Full Code (Latest Code Status on File) Date Activated Date Inactivated Comments 01/28/2024 11:12 AM 01/30/2024 2:14 PM Care Teams Customer Care Team Coach Relationship Specialty Start Date End Date Vinita Bahena MD [address] [place] [address] [place] [phone] PCP - General Family Medicine 07/19/23
--- OUTSIDE RECORDS SUMMARY | 2024-09-04 16:53 | XMS_ITS | Clinical Summary ---
Author Organization [facility] Address [address] [place] [address] Care Team Providers Care International Travel Consultant Name Role Phone Unavailable Primary Care Provider Unavailabl e Encounters Date Type Department Care Team Description 08/20/2024 Transcribe Orders [facility] [address] [place], [place] [phone] Mady Plata NP from Last 3 Months Social History Tobacco Use Types Packs/Day Years Used Date Smoking Tobacco: Smoker, Current Status Unknown Comments Unknown Sex and Gender Information Value Date Recorded Sex Assigned at Not on file Legal Sex Female 10:10 PM CDT Gender Identity Not on file Sexual Orientation Not on file Last Filed Vital Signs Vital Sign Reading Time Taken Comments Blood Pressure 118/90 10/26/2015 11:06 AM CDT Pulse 98 10/26/2015 11:05 AM CDT Temperature - - Respiratory Rate - - Oxygen Saturation - - Inhaled Oxygen Concentration - - Weight 84.8 kg (187 lb) 10/26/2015 11:05 AM CDT Height 147.3 cm (4' 10 ) 10/26/2015 11:05 AM CDT Body Mass Index 39.08 10/26/2015 11:05 AM CDT Plan of Treatment Health Maintenance Due Date Last Done Comments Cervical Cancer Screening Pa p Smear (Age 30 to 64) Every 3 Years 1960 Colorectal Cancer Screening Colonoscopy (10 Years) 1960 Annual Physical 1963 Hepatitis C 1978 DTaP, Tdap and Td Vaccines ( 1 - Tdap) 1979 Cervical Cancer Screening Pa p with HPV Testing (Age 30 to 64) Every 5 Years 1990 Cervical Cancer Screening with HPV 1990 Mammogram Screening 2000 Zoster Vaccines (1 of 2) 2010 COVID-19 Vaccine (2023-2 5 season) 2024 Influenza Adult (#1) 2024 RSV Immunization or 60+ Years (1 - 1-dose 75+ series) 2035 Meningococcal B Vaccine Aged Out No l onger eligible based on patient's age to complete this topic Meningococcal Vaccine Aged Out No natan rolf eligible based on patient's age to complete this topic Pneumococcal Vaccine: Pediat rics (0 to 5 Years) and At-Risk Patients (6 to 64 Years) Aged Out No longer eligible b ased on patient's age to complete this topic RSV Immunizations Under 20 Months Aged Out No longer eligible based on patient's age to complete this topic
[2024-09-04 16:54] LABS: Alanine Aminotransferase 13 U/L (6-35); Albumin Level 4.2 g/dL (3.5-5.1); Alkaline Phosphatase 95 U/L (38-126); Anion Gap 10 mmol/L (4-12); Aspartate Amino Transferase 22 U/L (14-36); Bilirubin,Total 0.4 mg/dL (0.2-1.3); Blood Urea Nitrogen 15 mg/dL (7-17); Calcium 8.7 mg/dL (8.4-10.2); Carbon Dioxide 28 mmol/L (22-30); Chloride 101 mmol/L (98-107); Estimated Glomerular Filt Rate > 60; Glucose 84 mg/dL (65-110); Magnesium 2.2 mg/dL (1.6-2.3); Phosphorus 3.8 mg/dL (2.5-4.5); Sodium 139 mmol/L (137-145)
[2024-09-04 17:07] LABS: Parathyroid Intact 69.1 pg/mL (14.5-75.2)
[2024-09-04 17:23] LABS: Free T4 Free Thyroxine 2.09 ng/dL (0.78-2.19); Vitamin D 25 Hydroxy 19.2 ng/mL
[2024-09-05 16:47] LABS: Ionized Calcium 4.8 mg/dL (4.7-5.5)
== END 2024-09-04 15:57 | disposition home or self-care (01) ==
LOC: ANHLAB 16:02
PROVIDERS: Visit Provider Internal Medicine
DX: E05.90 Thyrotoxicosis, unspecified without thyrotoxic crisis or storm (principal); E55.9 Vitamin D deficiency, unspecified; Z98.890 Other specified postprocedural states; Z90.89 Acquired absence of other organs; E89.0 Postprocedural hypothyroidism
CPT/HCPCS: 36415; 80053; 82306; 82330; 83735; 83970; 84100; 84439; 84443; 85027

== ENCOUNTER 2025-02-05 12:38 | Outpatient (CLI) | payer OTHER, SELFPAY ==
--- OUTSIDE RECORDS SUMMARY | 2025-02-05 12:45 | XMS_ITS | Clinical Summary ---
Author Organization [facility] Address [address] [place] [address] Care Team Providers Care Marble Machine Tender Name Role Phone Unavailable Primary Care Provider Unavailabl e Social History Tobacco Use Types Packs/Day Years [...] 11:05 AM CDT Height 147.3 cm (4' 10) 10/26/2015 11:05 AM CDT Body Mass Index [...] Screening with HPV 1990 Mammogram Screening 2000 Pneumococcal Vaccine: 50+ Ye ars (1 of 1 - PCV) 2010 Zoster Vaccines (1 of 2) 2010 COVID-19 Vaccine (2023-2 5 season) 2024 RSV Immunization or 60+ Years (1 [...]
[2025-02-05 13:16] LABS: Hematocrit 40.6 % (37.0-47.0); Hemoglobin 13.4 g/dL (12.0-15.0); Mean Corpuscular HGB Conc 33.0 g/dl (32-36); Mean Corpuscular Hemoglobin 30.9 pg (26-34); Mean Corpuscular Volume 93.5 fl (80-100); Platelet Count Result 269 k/mm3 (150-375); Red Blood Count 4.34 M/mm3 (4.2-5.4); White Blood Count 6.1 K/mm3 (4.5-10.0)
[2025-02-05 13:32] LABS: Alanine Aminotransferase 12 U/L (6-35); Albumin Level 4.1 g/dL (3.5-5.1); Alkaline Phosphatase 100 U/L (38-126); Anion Gap 9 mmol/L (4-12); Aspartate Amino Transferase 24 U/L (14-36); Bilirubin,Total 0.5 mg/dL (0.2-1.3); Blood Urea Nitrogen 3 mg/dL (7-17); Calcium 8.7 mg/dL (8.4-10.2); Carbon Dioxide 25 mmol/L (22-30); Chloride 103 mmol/L (98-107); Estimated Glomerular Filt Rate > 60; Glucose 93 mg/dL (65-110); Potassium 4.3 mmol/L (3.4-5.0); Sodium 137 mmol/L (137-145); Total Protein 8.2 g/dL (6.3-8.2)
[2025-02-05 13:44] LABS: Parathyroid Intact 57.0 pg/mL (14.5-75.2)
[2025-02-05 13:49] LABS: Free T4 Free Thyroxine 1.34 ng/dL (0.78-2.19)
[2025-02-05 14:10] LABS: Thyroid Stimulating Hormone 36.100 uIU/mL (0.465-4.680)
[2025-02-05 17:18] LABS: Hemoglobin A1C 4.9 % (<5.7)
[2025-02-06 18:08] LABS: Calcium, Ionized 4.8 mg/dL (4.5-5.6)
== END 2025-02-05 12:39 | disposition home or self-care (01) ==
LOC: ANHLAB 12:40
PROVIDERS: Visit Provider Internal Medicine
DX: E89.0 Postprocedural hypothyroidism (principal); Z98.890 Other specified postprocedural states; Z90.89 Acquired absence of other organs; E55.9 Vitamin D deficiency, unspecified; H57.89 Other specified disorders of eye and adnexa; E07.9 Disorder of thyroid, unspecified; F17.200 Nicotine dependence, unspecified, uncomplicated; E05.90 Thyrotoxicosis, unspecified without thyrotoxic crisis or storm
CPT/HCPCS: 36415; 80053; 82306; 82330; 83036; 83970; 84439; 84443; 85027; 86376

== ENCOUNTER 2025-06-09 09:32 | Outpatient (CLI) | payer OTHER, SELFPAY ==
--- NOTE | ~2025-06-09 | CT_ITS ---
EXAM/PROCEDURE: CT soft tissue neck w con HISTORY: Loclized enlarged lymph nodes COMPARISON: None available. TECHNIQUE: Contrast-enhanced soft tissue neck CT FINDINGS: Scattered nonpathologic by size lymph nodes are seen on both sides of the neck in the jugulodigastric, posterior triangle, occipital, submental, and sternocleidomastoid chains. Lymph nodes are also present in the supraclavicular regions. No large or dominant mass. No drainable fluid collection. Both parotid glands are borderline enlarged in appearance. Submandibular glands are also mildly enlarged in appearance. Small nodules along the inferior margin of the parotid gland also probably represent nonpathologic sized lymph nodes. Thyroidectomy surgical changes. Vascular structures patent. Bones intact. No acute process seen in the visualized upper chest or intracranial contents. Parapharyngeal and retropharyngeal spaces as well as fossae of Rosenmuller are symmetric. IMPRESSION: 1. Numerous nonpathologic sized lymph nodes including the supraclavicular region with a lymphoproliferative process not excluded. Query if patient has known history of malignancy. Follow-up soft tissue neck CT in 3 months suggested further evaluation sooner as clinically appropriate. 2. Slightly enlarged appearance of the parotid and submandibular glands. Reviewed, dictated and finalized at location A. NEL LIP STIFF[facility]ES IMPRESSION: 1. Numerous nonpathologic sized lymph nodes including the supraclavicular regio n with a lymphoproliferative process not excluded. Query if patient has known h istory of malignancy. Follow-up soft tissue neck CT in 3 months suggested furth er evaluation sooner as clinically appropriate. 2. Slightly enlarged appearance of the parotid and submandibular glands.
[2025-06-09 09:57] LABS: Estimated Glomerular Filt Rate > 60
== END 2025-06-09 09:33 | disposition home or self-care (01) ==
DX: R59.0 Localized enlarged lymph nodes (principal)
CPT/HCPCS: 70491; Q9967